=== PATIENT | female | born 1965 | race Caucasian/White ===

== ENCOUNTER 2020-01-14 03:51 | Emergency (ER) | payer OTHER ==
[2020-01-14] MEDS ORDERED: ACETAMINOPHEN 500 MG TABLET (FP) PO ONE (04:11)
[2020-01-14] MEDS ORDERED: ACETAMINOPHEN 325 MG TABLET (FP) ONE (04:44)
[2020-01-14 04:56] VITALS: BP 116/64; PULSE 80; TEMP 97.9; BMI 19.3
[2020-01-14] MEDS ORDERED: ACETAMINOPHEN 325 MG TABLET (FP) PO ONE (06:00)
== END 2020-01-14 06:09 | disposition home or self-care (01) ==
LOC: JER 03:51
DX: S13.4XXA Sprain of ligaments of cervical spine, initial encounter (principal)
CPT/HCPCS: 70450-TC; 72125-TC; 99284-25